=== PATIENT | female | born 1970 ===

== ENCOUNTER → 2023-06-21 06:23 | Day surgery (SDC) | payer OTHER, SELFPAY ==
[2023-06-21 07:22] LABS: Glucose - Point of Care 144 mg/dl (70-99)
== END ==
LOC: GI 06:23
PROVIDERS: ATTENDING PHYSICIAN Internal Medicine Gastroenterology
DX: Z12.11 Encounter for screening for malignant neoplasm of colon (principal); K64.0 First degree hemorrhoids; D12.3 Benign neoplasm of transverse colon; D12.2 Benign neoplasm of ascending colon; D12.0 Benign neoplasm of cecum; D12.4 Benign neoplasm of descending colon; K63.5 Polyp of colon; K51.40 Inflammatory polyps of colon without complications
CPT/HCPCS: 45385; 45380; 88305; 82962

== ENCOUNTER 2024-07-03 06:23 | Day surgery (SDC) | payer BC, SELFPAY ==
[2024-07-03 07:23] LABS: Glucose - Point of Care 122 mg/dl (70-99)
== END 2024-07-03 09:41 | disposition home or self-care (01) ==
LOC: GI 06:23
PROVIDERS: ATTENDING PHYSICIAN Internal Medicine Gastroenterology
DX: Z12.11 Encounter for screening for malignant neoplasm of colon (principal); K64.0 First degree hemorrhoids; K63.5 Polyp of colon; D12.3 Benign neoplasm of transverse colon; Z86.0100 Personal history of colon polyps, unspecified
CPT/HCPCS: 45380; 88305; 82962